=== PATIENT | female | born 1995 ===

== ENCOUNTER 2019-01-20 05:15 | Inpatient (IN) | payer MEDICAID ==
--- NOTE | 2019-01-20 08:04 | Ultrasound Report ---
Examination: Ultrasound Obstetrical Limited, 01/20/2019 INDICATION: Evaluate well being. COMPARISON: None FINDINGS: The amniotic fluid index measures 4.9 cm, which is within normal limits. The heart rate is 133 beats per minute. BREATHING MOVEMENT = 2 GROSS BODY MOVEMENT = 2 TONE = 2 QUALITATIVE AMNIOTIC FLUID VOLUME = 2 TOTAL BIOPHYSICAL SCORE = 8/8 IMPRESSION: 1. biophysical profile = 8/8 Signer Name: Dee Dee Tijerina MD Signed: 01/20/2019 7:59 AM Workstation Name: [id number]
[2019-01-20] MEDS ORDERED: ePHEDrine SULFATE 50 MG/1 ML INJ IV PRN ×2 (08:10→18:20)
[2019-01-20] MEDS ORDERED: BUTORPHANOL 2 MG/1 ML INJ IV PRN (08:10)
[2019-01-20] MEDS ORDERED: MINERAL OIL 30 ML ORAL LIQD PO PRN (08:10)
[2019-01-20] MEDS ORDERED: fentaNYL 100 MCG/2 ML INJ IV PRN (08:10)
[2019-01-20] MEDS ORDERED: TERBUTALINE 1 MG/1 ML INJ IVP PRN (08:10)
[2019-01-20] MEDS ORDERED: ONDANSETRON 4 MG/2 ML INJ IV PRN (08:10)
[2019-01-20] MEDS ORDERED: AMPICILLIN/NS 2 GM/100 ML 2 GM/100 ML BAG IV ONE (08:10)
[2019-01-20] MEDS ORDERED: NALOXONE 0.4 MG/1 ML INJ IV PRN (08:10)
[2019-01-20] MEDS ORDERED: TERBUTALINE 1 MG/1 ML INJ SUB-Q PRN (08:10)
[2019-01-20] MEDS ORDERED: LIDOCAINE (2%) 20 MG/1 ML VIAL 20 ML MDV INFILTRATI ONE (08:10)
[2019-01-20] MEDS ORDERED: OXYTOCIN DRIP 30 UNITS/500 ML BAG IV SCH (09:00)
[2019-01-20] MEDS ORDERED: OXYTOCIN 20 UNIT/1000ML DRIP 20 UNITS/1,000 ML BAG IV SCH (09:00)
[2019-01-20 10:01] LABS: Hematocrit 35.8 % (30.3-42.9); Hemoglobin 11.9 gm/dl (10.1-14.3); Mean Corpuscular HGB Conc 33 % (30-34); Mean Corpuscular Volume 95 fl (79-97); Platelet Count 158 K/mm3 (140-440); Red Blood Count 3.77 M/mm3 (3.65-5.03); Red Cell Distribution Width 13.8 % (13.2-15.2)
[2019-01-20] MEDS: LACTATED RINGERS 1,000 ML IV SCH ×2 (10:32→18:30)
[2019-01-20] MEDS ORDERED: AMPICILLIN/NS 1 GM/50 ML 1 GM/50 ML BAG IV SCH (12:12)
--- NOTE | 2019-01-20 18:13 | History and Physical Report ---
History of Present Illness Date of examination: 01/20/19 Date of admission: 01/20/19 08:25 Chief complaint: contractions History of present illness: Pt is a 23 year old female primigravida FRANCIE 01/21/19 at 39w6d who presents with painful contractions. During her evaluation in triage she was noted to have olioghydramnios (PARISA 4.9 cm). She denies leakage of fluid and denies vaginal bleeding. She has had care at [facility] since 12 wks complicated by trichomonas s/p Flagyl and negative test of cure. She is GBS negative. Past History Past Medical History: asthma Past Surgical History: tonsillectomy - Obstetrical History Expected Date of Delivery: 01/21/19 Actual Gestation: 39 Week(s) 6 Day(s) : 1 Medications and Allergies Allergies Allergy/AdvReac Type Severity Reaction Status Date / Time No Known Allergies Allergy Unverified 01/20/19 06:23 Active Meds: Active Medications Butorphanol Tartrate (Stadol) 2 mg IV Q2H PRN PRN Reason: Pain , Severe (7-10) Last Admin: 01/20/19 16:18 Dose: 2 mg Documented by: Ephedrine Sulfate (Ephedrine Sulfate) 10 mg IV Q2M PRN PRN Reason: Hypotension Fentanyl (Sublimaze) 100 mcg IV Q2H PRN PRN Reason: Labor Pain Oxytocin/Sodium Chloride (Pitocin/Ns 20 Unit/1000ml Drip) 20 units in 1,000 mls @ 125 mls/hr IV DIRECT JULIAN Oxytocin/Sodium Chloride (Pitocin/Ns 30 Unit/500ml) 30 units in 500 mls @ 2 mls/hr IV TITR JULIAN; Protocol Last Titration: 01/20/19 14:36 Dose: 6 mls/hr, 6 mls/hr Documented by: Lactated Ringer's (Lactated Ringers) 1,000 mls @ 125 mls/hr IV DIRECT JULIAN Last Admin: 01/20/19 10:32 Dose: 125 mls/hr Documented by: Ampicillin Sodium (Ampicillin/Ns 1 Gm/50 Ml) 1 gm in 50 mls @ 100 mls/hr IV Q4HR JULIAN; Protocol Mineral Oil (Mineral Oil) 30 ml PO QHS PRN PRN Reason: Constipation Naloxone HCl (Naloxone) 0.1 mg IV Q2MIN PRN PRN Reason: Res Rate </= 8 or 02 SAT < 92% Ondansetron HCl (Zofran) 4 mg IV Q8H PRN PRN Reason: Nausea And Vomiting Terbutaline Sulfate (Brethine) 0.25 mg SUB-Q ONCE PRN PRN Reason: Hyperstimulation/Hypertonicity Terbutaline Sulfate (Brethine) 0.25 mg IVP ONCE PRN PRN Reason: Hyperstimulation/Hypertonicity Review of Systems All systems: negative - Vital Signs Vital signs: Vital Signs Pulse BP 75 113/77 01/20/19 05:55 01/20/19 05:55 Temp Pulse Resp BP Pulse Ox 75 122/79 01/20/19 16:17 01/20/19 16:17 - Physical Exam Breasts: Positive: deferred Cardiovascular: Regular rate Lungs: Positive: Clear to auscultation Abdomen: Positive: soft (gravid, obese) Genitourinary (Female): Positive: normal external genitalia Uterus: Positive: enlarged (gravid ) Extremities: Positive: normal - Obstetrical FHR: auscultation normal Uterine Contraction Monitor Mode: External Cervical Dilatation: 2 Cervical Effacement Percentage: 80 station: -1 Uterine Contraction Pattern: Irregular Uterine Tone Measurement Phase: Resting Uterine Contraction Intensity: Mild Results Result Diagrams: 01/20/19 09:43 Abnormal lab results 01/20/19 Range/Units 09:43 WBC 11.8 H (4.5-11.0) K/mm3 All other labs normal. Assessment and Plan A: IUP at 39w6d Oligohydramnios Latent Labor Asthma GBS Negative P: Admit to labor and delivery Pitocin induction Routine intrapartum care
--- NOTE | 2019-01-20 18:19 | Anesthesia Consultation ---
Anesthesia Consult and Med Hx Date of service: 01/20/19 - Airway Anesthetic Teeth Evaluation: Good ROM Head & Neck: Adequate Mental/Hyoid Distance: Adequate Mallampati Class: Class II Intubation Access Assessment: Probably Good - Pulmonary Exam CTA: Yes - Cardiac Exam Cardiac Exam: RRR - Pre-Operative Health Status ASA Pre-Surgery Classification: ASA2 Proposed Anesthetic Plan: Epidural - Pulmonary Hx Asthma: Yes (Exercise induced) COPD: No Hx Pneumonia: No - Cardiovascular System Hx Hypertension: No - Central Nervous System Hx Seizures: No Hx Psychiatric Problems: No - Endocrine Hx Renal Disease: No Hx End Stage Renal Disease: No Hx Hypothyroidism: No Hx Hyperthyroidism: No - Hematic Hx Anemia: Yes Hx Sickle Cell Disease: No - Other Systems Hx Alcohol Use: Yes (socially)
[2019-01-20] MEDS ORDERED: NALOXONE 2 MG/2 ML INJ IV PRN (18:20)
[2019-01-20] MEDS ORDERED: SODIUM CHLORIDE P/F VIAL 10 ML 10 ML ONE (20:22)
[2019-01-20] MEDS ORDERED: DEXMEDETOMIDINE 200 MCG/2 ML VIAL IV ONE (20:22)
[2019-01-20] MEDS: fentaNYL-BUPIV 2 MCG/ML-0.125% 200 MCG/100 ML BAG EPIDURAL SCH (21:08)
[2019-01-21] MEDS: LACTATED RINGERS 1,000 ML IV SCH (02:48)
[2019-01-21] MEDS: fentaNYL-BUPIV 2 MCG/ML-0.125% 200 MCG/100 ML BAG EPIDURAL SCH (04:22)
--- NOTE | 2019-01-21 06:13 | Event Note ---
Date: 01/21/19 Pt comfortable with epidural. Category II tracing. SVE: /-1. 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 Plan to proceed with primary .
[2019-01-21] MEDS ORDERED: FAMOTIDINE 20 MG/2 ML INJ IV ONE (06:18)
[2019-01-21] MEDS ORDERED: BICITRA ORAL LIQD 30ML PO ONE (06:18)
[2019-01-21] MEDS ORDERED: METOCLOPRAMIDE 10 MG/2 ML INJ IV ONE (06:18)
[2019-01-21] MEDS ORDERED: ceFAZolin/Water 2 GM/20 ML 2 GM/20 ML SYRINGE IV NR (07:00)
[2019-01-21] MEDS ORDERED: OXYTOCIN 20 UNIT/1000ML DRIP 20 UNITS/1,000 ML BAG IV SCH (07:00)
[2019-01-21] MEDS ORDERED: LACTATED RINGERS 1,000 ML IV SCH ×2 (07:00→12:00)
[2019-01-21] MEDS ORDERED: OXYTOCIN 10 UNIT/1 ML INJ ONE (07:05)
[2019-01-21] MEDS ORDERED: KETOROLAC 30 MG/1 ML INJ ONE (07:05)
[2019-01-21] MEDS ORDERED: SODIUM BICARB 8.4% 50 MEQ/50 ML VIAL IV ONE (07:05)
[2019-01-21] MEDS ORDERED: LIDOCAINE MPF (2%) 20 MG/1 ML VIAL 5 ML ONE ×3 (07:05→07:43)
[2019-01-21] MEDS ORDERED: WATER FOR IRRIG STERILE 1,500 ML BOTTLE IR ONE (07:35)
[2019-01-21] MEDS ORDERED: SODIUM CHLORIDE 0.9% IRR 1,500 ML BOTTLE IR ONE (07:35)
[2019-01-21] MEDS ORDERED: KETAMINE/STERILE WATER 50 MG/ML SYRINGE ONE (07:39)
[2019-01-21] MEDS ORDERED: PROPOFOL 200 MG/20 ML VIAL IV ONE (07:39)
[2019-01-21] MEDS ORDERED: miSOPROStol 200 MCG TAB ONE (08:04)
[2019-01-21] MEDS ORDERED: dexAMETHasone 20 MG/5 ML VIAL ONE (08:25)
[2019-01-21] MEDS ORDERED: BUPIVACAINE/PF (0.5%) 5 MG/1 ML 30 ML VIAL INFILTRATI ONE (08:25)
--- NOTE | 2019-01-21 09:25 | Operative Report ---
Operative Report Operative Report: Date of procedure: December Preoperative diagnosis: 1) IUP at 40w0d 2)Oligohydramnios 3) Active labor 4) Arrest of Dilation Postoperative diagnosis: Same 5) Uterine atony Procedure:Primary low transverse section Surgeon: Nuria Rivera M.D. Anesthesia: Regional Findings: 1) Viable female , Apgars 8 and 9, weight 3387g, (7 lb 7 oz) in cephalic presentation. Thick Meconium 2) Normal-appearing uterus ovaries and tubes Estimated blood loss: 1000 mL IV fluids:1500 mL Medications: Methergine 0.2 mg IM Urine output: 100 mL, clear at the end of the procedure Drains: Delarosa to gravity Specimens: Placenta to pathology Complications: Counts correct x 3 Disposition: Stable to PACU Indication for procedure: Pt is a 23 year old primigravida at 40 wks admitted for induction secondary to oligohydramnios. She progressed to 8 cm but made no further cervical change for 5 hours despite adequate contractility. The decision was made to proceed to delivery. Operation in detail: After the risks, benefits, alternatives and complications were explained to the patient she gave informed consent for the procedure. She was subsequently taken to the operating room where regional anesthesia was noted to be adequate. She was subsequently placed in the dorsal supine position with leftward tilt and prepped and draped in a normal sterile fashion. heart tones were noted prior to incision. A timeout was performed. A Pfannenstiel skin incision was made with the knife and carried down to the layer of the fascia with the Bovie. The fascia was incised in the midline and the fascial incision was extended bilaterally with the Bovie. The fascial incision was then stretched. The rectus muscles were then in the midline. The peritoneum was then entered bluntly. The peritoneal incision was extended with good visualization of the bladder. The peritoneal incision was then stretched. An Axel retractor was placed. The bladder blade was placed. The vesicouterine peritoneum was grasped with smooth pickups and incised with Metzenbaum scissors. Metzenbaum scissors were used to extend the incision bilaterally. The bladder flap was then created digitally and the bladder blade was replaced. A transverse incision was made in the lower uterine segment with a knife and extended bilaterally with the bandage scissors. The head was delivered without difficulty followed by shoulders and body. was bulb suctioned at delivery. The cord was clamped and cut and the was handed to NICU staff in attendance. Cord blood was collected. The placenta was then delivered manually. The uterus was then exteriorized and cleared of all clots and debris. The uterus was noted to be atonic despite pitocin administration and manual massage. Methergine 0.2 mg IM administered. Uterine tone improved. The hysterotomy was then reapproximated with 0 Vicryl in a running locked fashion. A second layer of the same suture was used in an imbricating fashion. The hysterotomy was inspected and hemostasis was noted. The gutters were irrigated and cleared of all clots and debris. The hysterotomy was again inspected and noted to be hemostatic. Surgicel was placed over the hysterotomy. The peritoneum was reapproximated with 2-0 Vicryl in a running fashion incorporating the rectus muscles. The fascia was reapproximated with 0-Vicryl in a running fashion. The subcutaneous tissue was reapproximated with 3-0 Vicryl in a running fashion. The skin was reapproximated with 4-0 Vicryl in a subcuticular fashion. The incision was then covered with steri strips and a pressure dressing. The procedure was then ended. The patient tolerated the procedure well and was taken to the PACU in stable condition. All instrument, lap, and needle counts were correct 3.
--- NOTE | 2019-01-21 09:25 | Procedure Note ---
OB Delivery Note - Delivery Date of Delivery: 01/21/19 Surgeon: ERICA ANGELO Estimated blood loss: 1000cc - Section Preop diagnosis: arrest of dilation Postop diagnosis: same section procedure: section, primary low transverse Disposition: PACU Narrative: Please see operative report. - A at 1 minute: 8 at 5 minutes: 9 Gender: Female (3387g (7lb 7oz) @ 0750 am)
--- NOTE | 2019-01-21 09:32 | Post Anesthesia Evaluation ---
- Post Anesthesia Evaluation Patient Participated: Yes Airway Patent: Yes Stable Respiratory Function: Yes Nausea/Vomiting: No Temp > 96.8F: Yes Pain Manageable: Yes Adequeate Hydration: Yes Anesthesia Complications: No Block Receding Appropriately: Yes
[2019-01-21] MEDS ORDERED: NalbUPHINE 10 MG/1 ML INJ IV PRN (09:35)
[2019-01-21] MEDS ORDERED: ACETAMINOPHEN 500 MG TAB PO SCH (10:00)
[2019-01-21] MEDS ORDERED: MAGNESIUM SULFATE 40GM/1000ML 40 GM/1,000 ML BAG IV ONE (10:11)
[2019-01-21] MEDS ORDERED: MAGNESIUM SULFATE 4 GM/100 ML BAG IV ONE ×2 (10:11→11:06)
--- NOTE | 2019-01-21 10:42 | Event Note ---
Date: 01/21/19 In PACU, pt's blood pressures 120-150/70-90s. Pt now complains of headache and blurry vision as well. Plan to start magnesium sulfate for seizure prophylaxis for preeclampsia with severe features. Keep pt on unit for magnesium sulfate.
[2019-01-21] MEDS ORDERED: hydrALAZINE 20 MG/1 ML INJ IV PRN (11:06)
[2019-01-21] MEDS ORDERED: CALCIUM GLUCONATE 1000 MG/10 ML INJ IV ONE (11:06)
[2019-01-21] MEDS ORDERED: MAGNESIUM SULFATE 40GM/1000ML 40 GM/1,000 ML BAG IV SCH (12:00)
[2019-01-21] MEDS: KETOROLAC 30 MG/1 ML INJ IV SCH ×2 (12:00→18:00)
[2019-01-21 13:06] LABS: Bilirubin,Urine NEG (Negative); Blood,Urine LG (Negative); Color,Urine Yellow (Yellow); Mucus,Urine FEW /HPF; Protein,Urine <15 mg/dL mg/dL (Negative); Urobilinogen,Urine < 2.0 mg/dL (<2.0)
[2019-01-21 13:08] LABS: Hematocrit 36.8 % (30.3-42.9); Hemoglobin 12.4 gm/dl (10.1-14.3); Mean Corpuscular HGB Conc 34 % (30-34); Mean Corpuscular Volume 96 fl (79-97); Platelet Count 165 K/mm3 (140-440); Red Blood Count 3.84 M/mm3 (3.65-5.03); Red Cell Distribution Width 14.1 % (13.2-15.2)
[2019-01-21 13:28] LABS: Alanine Aminotransferase 7 units/L (7-56); Uric Acid 7.2 mg/dL (3.5-7.6)
--- NOTE | 2019-01-21 20:54 | Ultrasound Report ---
ULTRASOUND OBSTETRIC LIMITED ULTRASOUND BIOPHYSICAL PROFILE INDICATION: Evaluate well being. COMPARISON: None FINDINGS: The amniotic fluid index measures 4.9 cm, which is within normal limits. The heart r ate is 133 beats per minute. BREATHING MOVEMENT = 2 GROSS BODY MOVEMENT = 2 TONE = 2 QUALITATIVE AMNIOTIC FLUID VOLUME = 2 TOTAL BIOPHYSICAL SCORE = 8/8 IMPRESSION: 1. biophysical profile = 10/05 Signer Name: Patel Irwin MD Signed: 01/21/2019 8:50 PM Workstation Name: [id number]
[2019-01-21] MEDS ORDERED: IBUPROFEN 600 MG TAB PO ONE (21:43)
[2019-01-22] MEDS: PREGABALIN 75 MG CAP PO SCH ×2 (01:28→22:12)
--- NOTE | 2019-01-22 09:29 | Progress Note ---
Assessment and Plan A/P POD1 s/p primary csec sp mag for pree close attention to maternal status Subjective - Subjective Date of service: 01/22/19 Principal diagnosis: s/p Primary csec Patient reports: appetite normal, voiding normally, pain well controlled, flatus, ambulating normally : doing well Objective - Vital Signs Latest vital signs: Vital Signs Temp Pulse Resp BP BP Pulse Ox 01/22/19 07:00 97.9 F 16 01/22/19 06:49 65 118/55 01/22/19 06:19 73 107/64 01/22/19 05:49 67 104/59 01/22/19 00:38 71 115/66 01/21/19 23:38 75 120/72 01/21/19 22:38 75 122/69 01/21/19 21:38 77 122/73 01/21/19 20:45 98.4 F 82 16 130/77 01/21/19 20:38 82 130/77 01/21/19 19:38 77 120/74 01/21/19 18:38 74 123/74 01/21/19 17:38 81 128/75 01/21/19 16:38 71 122/71 01/21/19 16:00 99.0 F 14 01/21/19 15:38 71 132/75 01/21/19 14:38 71 134/81 01/21/19 12:26 72 10 L 119/72 95 01/21/19 12:11 72 12 123/76 94 01/21/19 11:56 69 14 124/82 96 01/21/19 11:37 99.2 F 01/21/19 10:58 100.0 F H 14 95 01/21/19 10:43 67 10 L 134/83 94 Intake and Output 01/21/19 01/22/19 01/22/19 23:59 07:59 15:59 Output Total 1200 500 Balance -1200 -500 Output: Urine 1200 500 Indwelling Catheter 850 500 Uretheral (Delarosa) 350 Other: Total, Output Amount 850 500 - Exam Breasts: Present: normal Cardiovascular: Present: Regular rate, Normal S1 Lungs: Present: Clear to auscultation, Normal air movement Abdomen: Present: normal appearance, soft, normal bowel sounds. Absent: distention, tenderness, guarding Uterus: Present: normal, firm, fundal height below umbilicus. Absent: bogginess, tenderness Extremities: Present: normal Deep Tendon Reflex Grade: Normal +2 Incision: Present: normal, dry, intact - Labs Labs: Abnormal lab results 01/21/19 01/21/19 01/21/19 Range/Units 12:53 12:53 19:42 WBC 27.0 H (4.5-11.0) K/mm3 Magnesium 5.80 H (1.7-2.3) mg/dL Lactate Dehydrogenase 216 H (91-180) units/L 01/22/19 01/22/19 Range/Units 03:07 06:54 WBC (4.5-11.0) K/mm3 Magnesium 6.20 H 6.00 H (1.7-2.3) mg/dL Lactate Dehydrogenase (91-180) units/L
[2019-01-22] MEDS: KETOROLAC 30 MG/1 ML INJ IV SCH ×2 (10:03→16:17)
[2019-01-22 12:30] LABS: Hematocrit 29.6 % (30.3-42.9); Hemoglobin 9.9 gm/dl (10.1-14.3); Mean Corpuscular HGB Conc 33 % (30-34); Mean Corpuscular Volume 95 fl (79-97); Platelet Count 164 K/mm3 (140-440); Red Blood Count 3.11 M/mm3 (3.65-5.03); Red Cell Distribution Width 14.6 % (13.2-15.2)
[2019-01-22 13:39] LABS: Basophils % (Manual) 0 % (0.0-1.8); Eosinophils % (Manual) 0 % (0.0-4.3); Total Cells Counted 100
[2019-01-22 13:40] LABS: Anisocytosis Few; Large Platelets Rare; Platelet Estimate Consistent w Auto; Poikilocytosis Few
[2019-01-22 16:47] LABS: Mucus,Urine 1+ /HPF
[2019-01-22 16:49] LABS: Color,Urine Yellow (Yellow); Ictotest,Urine Negative (Negative); PH,Urine 6.5 (5.0-7.0); Protein,Urine <15 mg/dL mg/dL (Negative); Urobilinogen,Urine < 2.0 mg/dL (<2.0)
[2019-01-23] MEDS ORDERED: ACETAMINOPHEN 500 MG TAB ONE (01:29)
[2019-01-23] MEDS: KETOROLAC 30 MG/1 ML INJ IV SCH (01:45)
--- NOTE | 2019-01-23 08:35 | Progress Note ---
Assessment and Plan A/P POD2 s/p primary csec sp mag for pree close attention to maternal statusDiflucan for yeast in urine Urine culture no growth iron for anemia 9.9 Subjective - Subjective Date of service: 01/23/19 Principal diagnosis: s/p Primary csec Patient reports: appetite normal, voiding normally, pain well controlled, flatus, ambulating normally : doing well Objective - Vital Signs Latest vital signs: Vital Signs Temp Pulse Resp BP Pulse Ox 01/23/19 06:19 98.2 F 71 18 106/63 97 01/23/19 01:45 98.4 F 78 18 102/53 97 01/22/19 20:56 97.8 F 84 16 98/55 97 01/22/19 16:42 98.4 F 84 16 103/58 97 01/22/19 11:47 98.1 F 86 20 115/71 96 Intake and Output 01/22/19 01/23/19 01/23/19 23:59 07:59 15:59 Intake Total 480 260 Output Total 250 Balance 230 260 Intake: Oral 240 Intake, Free Water 240 260 Output: Urine 250 Void 250 Other: Total, Intake Amount 240 Total, Output Amount 250 # Voids Void 1 2 - Exam Breasts: Present: normal Cardiovascular: Present: Regular rate, Normal S1 Lungs: Present: Clear to auscultation, Normal air movement Abdomen: Present: normal appearance, soft, normal bowel sounds. Absent: distention, tenderness, guarding Vulva: both: normal Uterus: Present: normal, firm, fundal height below umbilicus. Absent: bogginess, tenderness Extremities: Present: normal Deep Tendon Reflex Grade: Normal +2 Incision: Present: normal, dry, intact - Labs Labs: Abnormal lab results 01/22/19 Range/Units 12:01 WBC 25.4 H (4.5-11.0) K/mm3 RBC 3.11 L (3.65-5.03) M/mm3 Hgb 9.9 L (10.1-14.3) gm/dl Hct 29.6 L D (30.3-42.9) % Seg Neuts % (Manual) 88.0 H (40.0-70.0) % Lymphocytes % (Manual) 9.0 L (13.4-35.0) % Seg Neutrophils # Man 22.4 H (1.8-7.7) K/mm3
[2019-01-23] MEDS: FLUCONAZOLE 200 MG TAB PO SCH (09:50)
[2019-01-23 10:27] LABS: Basophils % (Auto) 0.2 % (0.0-1.8); Hematocrit 28.3 % (30.3-42.9); Hemoglobin 9.3 gm/dl (10.1-14.3); Lymphocytes # (Auto) 2.6 K/mm3 (1.2-5.4); Lymphocytes % (Auto) 13.4 % (13.4-35.0); Mean Corpuscular HGB Conc 33 % (30-34); Mean Corpuscular Volume 97 fl (79-97); Monocytes # (Auto) 0.7 K/mm3 (0.0-0.8); Monocytes % (Auto) 3.8 % (0.0-7.3); Platelet Count 184 K/mm3 (140-440); Red Blood Count 2.92 M/mm3 (3.65-5.03); Red Cell Distribution Width 14.2 % (13.2-15.2)
[2019-01-23] MEDS: oxyCODONE /ACETAMINOPHEN 5-325MG TAB PO PRN (16:37)
[2019-01-23] MEDS: PREGABALIN 75 MG CAP PO SCH (22:10)
--- NOTE | 2019-01-24 09:19 | Discharge Summary ---
Providers - Providers Date of Admission: 01/20/19 08:25 Date of discharge: 01/24/19 Attending physician: ERICA ANGELO Primary care physician: ERICA ANGELO Hospitalization Reason for admission: other (Oligohydramnios) Delivery: Procedure: primary low transverse Incision: normal, dry, intact Other procedures: none complications: other (gestational hypertension) Discharge diagnosis: IUP at term delivered baby: female Hospital course: Pt arrived with contractions and oligohydramnios. She was admitted for augmentation of labor. She underwent a primary for arrest of dilation. She developed gestational hypertension and received mag sulfate x24 hours. She met d/c criteria on POD3. Condition at discharge: Good Disposition: DC-01 TO HOME OR SELFCARE Plan - Provider Discharge Summary Activity: routine, no sex for 6 weeks, no heavy lifting 4 weeks, no strenuous exercise Diet: routine Instructions: routine Additional instructions: [] Smoking cessation referral if applicable(refer to patient education folder for contact #) [] Refer to [facility] Booklet Call your doctor immediately for: * Fever > 100.5 * Heavy vaginal bleeding ( >1 pad per hour) * Severe persistent headache * Shortness of breath * Reddened, hot, painful area to leg or breast * Drainage or odor from incision. * Keep incision clean and dry at all times and follow doctor's instructions regarding bathing/showering - Follow up plan Follow up: SUMAN HELMS CNM [Advanced Practice Nurse] - 7 Days
--- NOTE | 2019-01-24 09:22 | Progress Note ---
Assessment and Plan POD3 primary c section gestational HTN, VSS now Acute on chronic anemia- ferrous sulfate Discharge to home today Subjective - Subjective Date of service: 01/24/19 Principal diagnosis: s/p Primary csec Interval history: Pt is POD3 s/p primary , gestational HTN, and mag sulfate infusion Patient reports: appetite normal, voiding normally, pain well controlled, flatus, ambulating normally [place]: doing well, bottle feeding (wants to breast feed) Objective - Vital Signs Latest vital signs: Vital Signs Temp Pulse Resp BP BP Pulse Ox 01/24/19 06:37 99.1 F 90 16 120/72 96 01/24/19 01:12 98.1 F 74 18 116/65 97 01/23/19 21:49 98.4 F 74 16 108/63 96 01/23/19 16:32 98.2 F 72 20 128/77 Intake and Output 01/23/19 01/24/19 01/24/19 23:59 07:59 15:59 Intake Total 360 750 Output Total 1300 Balance -940 750 Intake: Oral 360 Intake, Free Water 750 Output: Urine 1300 Void 1300 Other: Total, Intake Amount 240 Total, Output Amount 400 # Voids Void 3 1 - Exam Breasts: Present: engorged Lungs: Present: Normal air movement Abdomen: Present: normal appearance, soft Uterus: Present: normal, firm, fundal height below umbilicus Incision: Present: normal, dry, intact - Labs Labs: Abnormal lab results 01/23/19 Range/Units 09:50 WBC 19.3 H (4.5-11.0) K/mm3 RBC 2.92 L (3.65-5.03) M/mm3 Hgb 9.3 L (10.1-14.3) gm/dl Hct 28.3 L (30.3-42.9) % Seg Neutrophils % 82.6 H (40.0-70.0) % Seg Neutrophils # 15.9 H (1.8-7.7) K/mm3
[2019-01-24] MEDS: FLUCONAZOLE 200 MG TAB PO SCH (09:41)
[2019-01-24] MEDS: oxyCODONE /ACETAMINOPHEN 5-325MG TAB PO PRN (10:23)
[2019-01-24 17:34] VITALS: BP 116/68
== END 2019-01-24 17:45 | disposition home or self-care (01) | DRG 765 ==
LOC: TRG 05:15 → LD 08:25 → OB 01-22 09:06
PROVIDERS: ADMIT Obstetrics & Gynecology; ATTEND Obstetrics & Gynecology
PROC: 10D00Z1 Extraction of Products of Conception, Low, Open Approach (ICD-10-PCS; principal; 2019-01-21)
DX: O99.52 Diseases of the respiratory system complicating childbirth (principal); O41.03X0 Oligohydramnios, third trimester, not applicable or unspecified; J45.909 Unspecified asthma, uncomplicated; O99.02 Anemia complicating childbirth; O77.0 Labor and delivery complicated by meconium in amniotic fluid; D50.0 Iron deficiency anemia secondary to blood loss (chronic); N88.3 Incompetence of cervix uteri; O13.4 Gestational [pregnancy-induced] hypertension without significant proteinuria, complicating childbirth; O62.2 Other uterine inertia; O14.15 Severe pre-eclampsia, complicating the puerperium; Z79.899 Other long term (current) drug therapy; Z90.89 Acquired absence of other organs; Z37.0 Single live birth; Z3A.40 40 weeks gestation of pregnancy
CPT/HCPCS: 36415; 59025; 76815; 76819; 81001; 82565; 83615; 83735; 84450; 84460; 84550; 85007; 85025; 85027; 86850; 86900; 86901; 87086; 88307; G0378; J0290; J0595; J0690; J1100; J1885; J2405; J2590; J2704; J2765; J3475; J3490; J7120

== ENCOUNTER 2019-01-26 10:39 | Emergency (ER) | payer MEDICAID ==
[2019-01-26] MEDS ORDERED: SODIUM CHLORIDE 0.9% 1000 ML 1,000 ML IV ONE (12:15)
[2019-01-26] MEDS ORDERED: METOCLOPRAMIDE 10 MG/2 ML INJ IV ONE (12:15)
--- NOTE | 2019-01-26 12:20 | Emergency Department Report ---
HPI - General Chief Complaint: Nausea/Vomiting/Diarrhea Time Seen by Provider: 01/26/19 12:05 - HPI HPI: Room 2 The patient is a 23-year-old female presenting with a chief complaint of nausea and tremulousness. The patient states she is from a 01/21/2019. The patient states yesterday whenever lying down she developed nausea without vomiting and begins to feel tremulous. She states she feels as though she is "shaking inside." He admits to slight dysuria since yesterday. Patient denies history of fever. The patient states she is breast-feeding Location: [See above] Duration: [See above] Quality: [See above] Severity: [See above] Timing: [See above] Context: [See above] Modifying factors: [See above] Associated signs and symptoms: [see above] ED Past Medical Hx - Past Medical History Previous Medical History?: Yes Hx Asthma: Yes (Exercise induced) - Surgical History Past Surgical History?: Yes Additional Surgical History: C section - Family History Family history: no significant - Social History Smoking Status: Never Smoker Substance Use Type: None (denies illicit drug use) - Medications Home Medications: Home Medications Medication Instructions Recorded Confirmed Last Taken Type Ferrous Sulfate [Ferrous Sulfate 324 mg PO BID #60 tablet.dr 01/24/19 Unknown Rx 324 MG] Ibuprofen [Motrin] 600 mg PO Q6H PRN #60 tablet 01/24/19 Unknown Rx Metoclopramide [Reglan] 10 mg PO Q6H PRN #30 tablet 01/26/19 Unknown Rx cephALEXin [Keflex] 500 mg PO Q8HR #21 cap 01/26/19 Unknown Rx ED Review of Systems ROS: Stated complaint: POST C SECTION ISSUES Other details as noted in HPI Constitutional: denies: fever Eyes: denies: eye pain ENT: denies: throat pain Respiratory: no symptoms reported Cardiovascular: denies: chest pain Endocrine: no symptoms reported Gastrointestinal: nausea. denies: abdominal pain, vomiting Genitourinary: dysuria Musculoskeletal: denies: back pain Neurological: denies: headache Physical Exam - Physical Exam Vital Signs: Vital Signs 01/26/19 10:43 Temperature 97.7 F Pulse Rate 92 H Respiratory 20 Rate Blood Pressure 131/82 [Right] O2 Sat by Pulse 96 Oximetry Physical Exam: GENERAL: The patient is well-developed well-nourished female lying on stretcher not appearing to be in acute distress. [] HEENT: Normocephalic. Atraumatic. Extraocular motions are intact. Patient has moist mucous membranes. NECK: Supple. Trachea midline CHEST/LUNGS: Clear to auscultation. There is no respiratory distress noted. HEART/CARDIOVASCULAR: Regular. There is no tachycardia. There is no gallop rub or murmur. ABDOMEN: Abdomen is soft, nontender. Patient has normal bowel sounds. There is no abdominal distention. SKIN: There is no rash. There is no edema. There is no diaphoresis. NEURO: The patient is awake, alert, and oriented. The patient is cooperative. The patient has normal speech MUSCULOSKELETAL: There is no CVA tenderness. There is no evidence of acute injury. ED Course Vital Signs 01/26/19 10:43 Temperature 97.7 F Pulse Rate 92 H Respiratory 20 Rate Blood Pressure 131/82 [Right] O2 Sat by Pulse 96 Oximetry - Reevaluation(s) Reevaluation #1: 01/26/19 14:14 Patient states she is improved and her nausea is controlled. ED Medical Decision Making - Lab Data Result diagrams: 01/26/19 Unknown 01/26/19 Unknown Laboratory Tests 01/26/19 01/26/19 01/26/19 13:24 Unknown Unknown WBC 11.6 H RBC 3.48 L Hgb 11.2 Hct 33.4 MCV 96 MCH 32 MCHC 34 RDW 13.8 Plt Count 269 Lymph % (Auto) 17.8 [place] % (Auto) 4.4 Eos % (Auto) 0.5 Baso % (Auto) 0.3 Lymph # 2.1 [place] # 0.5 Eos # 0.1 Baso # 0.0 Seg Neutrophils % 77.0 H Seg Neutrophils # 8.9 H Sodium 136 L Potassium 3.9 Chloride 99.8 Carbon Dioxide 20 L Anion Gap 20 BUN 10 Creatinine 0.6 L Estimated GFR > 60 BUN/Creatinine Ratio 17 Glucose 88 Calcium 9.8 Total Bilirubin 0.20 AST 27 ALT 28 Alkaline Phosphatase 111 Total Protein 7.7 Albumin 3.7 L Albumin/Globulin Ratio 0.9 Lipase 18 TSH Free T4 Urine Color Yellow Urine Turbidity Clear Urine pH 6.0 Ur Specific [place] 1.015 Urine Protein <15 mg/dl Urine Glucose (UA) Neg Urine Ketones 20 Urine Blood Lg Urine Nitrite Neg Urine Bilirubin Neg Urine Urobilinogen < 2.0 Ur Leukocyte Esterase Tr Urine WBC (Auto) 6.0 Urine RBC (Auto) 2.0 U Epithel Cells (Auto) 2.0 Urine Bacteria (Auto) 1+ Urine Mucus Few 01/26/19 Unknown WBC RBC Hgb Hct MCV MCH MCHC RDW Plt Count Lymph % (Auto) [place] % (Auto) Eos % (Auto) Baso % (Auto) Lymph # [place] # Eos # Baso # Seg Neutrophils % Seg Neutrophils # Sodium Potassium Chloride Carbon Dioxide Anion Gap BUN Creatinine Estimated GFR BUN/Creatinine Ratio Glucose Calcium Total Bilirubin AST ALT Alkaline Phosphatase Total Protein Albumin Albumin/Globulin Ratio Lipase TSH 2.050 Free T4 1.38 Urine Color Urine Turbidity Urine pH Ur Specific [place] Urine Protein Urine Glucose (UA) Urine Ketones Urine Blood Urine Nitrite Urine Bilirubin Urine Urobilinogen Ur Leukocyte Esterase Urine WBC (Auto) Urine RBC (Auto) U Epithel Cells (Auto) Urine Bacteria (Auto) Urine Mucus - Differential Diagnosis UTI, pyelonephritis, dehydration, anxiety, hyperthyroidism Critical care attestation.: If time is entered above; I have spent that time in minutes in the direct care of this critically ill patient, excluding procedure time. ED Disposition Clinical Impression: Nausea, Bacteria in urine Disposition: DC-01 TO HOME OR SELFCARE Is pt being admited?: No Does the pt Need Aspirin: No Condition: Stable Instructions: Acute Nausea and Vomiting (ED) Additional Instructions: Return to the emergency department should you develop worsening symptoms, inability to tolerate food or liquids, high fever or any other concerns Prescriptions: cephALEXin [Keflex] 500 mg PO Q8HR #21 cap Metoclopramide [Reglan] 10 mg PO Q6H PRN #30 tablet PRN Reason: Nausea Referrals: PRIMARY CARE, [Primary Care Provider] - 3-5 Days [facility] [Provider Group] - 3-5 Days Time of Disposition: 14:18
[2019-01-26 12:46] LABS: Basophils % (Auto) 0.3 % (0.0-1.8); Eosinophils # (Auto) 0.1 K/mm3 (0.0-0.4); Eosinophils % (Auto) 0.5 % (0.0-4.3); Hematocrit 33.4 % (30.3-42.9); Hemoglobin 11.2 gm/dl (10.1-14.3); Lymphocytes # (Auto) 2.1 K/mm3 (1.2-5.4); Lymphocytes % (Auto) 17.8 % (13.4-35.0); Mean Corpuscular HGB Conc 34 % (30-34); Mean Corpuscular Volume 96 fl (79-97); Monocytes # (Auto) 0.5 K/mm3 (0.0-0.8); Monocytes % (Auto) 4.4 % (0.0-7.3); Platelet Count 269 K/mm3 (140-440); Red Blood Count 3.48 M/mm3 (3.65-5.03); Red Cell Distribution Width 13.8 % (13.2-15.2)
[2019-01-26 13:06] LABS: Alanine Aminotransferase 28 units/L (7-56); Albumin 3.7 g/dL (3.9-5); BUN/Creatinine Ratio 17; Blood Urea Nitrogen 10 mg/dL (7-17); Calcium 9.8 mg/dL (8.4-10.2); Hemolysis Index 0
[2019-01-26 13:14] LABS: Free T4 (Free Thyroxine) 1.38 ng/dL (0.76-1.46)
[2019-01-26 13:49] LABS: Bacteria,Urine 1+ /HPF (Negative); Bilirubin,Urine NEG (Negative); Blood,Urine LG (Negative); Color,Urine Yellow (Yellow); Mucus,Urine FEW /HPF; Protein,Urine <15 mg/dL mg/dL (Negative); Urobilinogen,Urine < 2.0 mg/dL (<2.0)
[2019-01-26 14:24] VITALS: BP 156/83
== END 2019-01-26 14:23 | disposition home or self-care (01) ==
LOC: ED 10:39
DX: O90.89 Other complications of the puerperium, not elsewhere classified (principal); R82.71 Bacteriuria; J45.909 Unspecified asthma, uncomplicated; Z79.899 Other long term (current) drug therapy
CPT/HCPCS: 36415; 80053; 81001; 83690; 84439; 84443; 85025; 96361; 96374; 99283; J2765; J7030